=== PATIENT | male | born 1945 | race Caucasian/White ===

== ENCOUNTER 2019-06-08 22:07 | Emergency (ER) | payer MEDICARE, MEDICAID ==
[~2019-06-08] VITALS: Ht 182.9 cm; Wt 61.8 kg
[~2019-06-08 22:07] MED LIST: ALBU8.5H5 INH; AMOX1TAB12 PO; BENZ1TAB61 PO; CHLO100T6 PO; CIPR500T87 PO; CITA20TA6 PO; DIAZ5TAB4 PO; DOXE50CA PO; FLUT1DIS3 INH; LEVO500T47 PO; METH4TAB2 PO; OMEP20CA9 PO; QUET100T PO; TIOT18CA INH
[2019-06-08] MEDS ORDERED: ALBUTEROL/IPRATROPIUM 2.5MG/0.5MG, 3 ML ONE ×2 (22:27→22:47)
[2019-06-08] MEDS ORDERED: SODIUM CHLORIDE FLUSH 10ML SYR IVF ONE (22:30)
[2019-06-08] MEDS ORDERED: ALBUTEROL/IPRATROPIUM 2.5MG/0.5MG, 3 ML NPPB ONE (22:30)
--- NOTE | 2019-06-08 22:39 | NUR ---
RT TREATMENT GIVEN TO PT IMMEDIATELY PER MD REQUEST. TUCKER JOHNSON PROVIDED.
--- NOTE | 2019-06-08 22:44 | NUR ---
Pt alert and oriented. Pt reports food gets stuck in his throat 3-4x a year. Pt reports he can usually cough it up, but feels like a small piece of potato dinner is stuck near the bottom of his throat. Pt sitting up on gurney actively forcing himself to cough. No stridor heard. Lungs clear throughout. Pt pulse ox/HR monitor. PIV placed by OfidiumSA CORDERO. Pt normally wears 4L NC at home.
--- NOTE | 2019-06-08 23:08 | NUR ---
Pt sitting up naga. Pt reports no change after breathing tx.
--- NOTE | 2019-06-08 23:39 | NUR ---
Pt returned from CT
[2019-06-08 23:41] VITALS: BP 149/75
--- NOTE | 2019-06-08 23:43 | NUR ---
Pt reports pain/irration in throat "is not as bad". VS retaken. Call light in place
--- NOTE | 2019-06-09 00:14 | NUR ---
Pt in room, awaiting results. Pt still coughing but has improved.
--- NOTE | 2019-06-09 00:27 | NUR ---
Patient/Caregiver given discharge instructions and they have confirmed that they understand the instructions. Patient ambulatory with steady gait.
--- NOTE | 2019-06-09 00:58 | NUR ---
Pt given taxi voucher for safe dc.
== END 2019-06-09 00:59 | disposition home or self-care (01) ==
LOC: ED 06-09 00:16
DX: R09.89 Other specified symptoms and signs involving the circulatory and respiratory systems (principal); J38.5 Laryngeal spasm; I10 Essential (primary) hypertension; K21.9 Gastro-esophageal reflux disease without esophagitis; J43.9 Emphysema, unspecified; Z87.891 Personal history of nicotine dependence; Z86.73 Personal history of transient ischemic attack (TIA), and cerebral infarction without residual deficits
CPT/HCPCS: 71045; 71250; 93005; 94640; 99284; J7620